=== PATIENT | female | born 1960 | race Caucasian/White ===

== ENCOUNTER → 2022-10-22 12:27 | Outpatient (BNVA) | payer OTHER, SELFPAY | PROVIDERS: Visit Provider Internal Medicine | DX: R50.9 Fever, unspecified (principal); R79.82 Elevated C-reactive protein (CRP); R21 Rash and other nonspecific skin eruption; M25.50 Pain in unspecified joint; R41.89 Other symptoms and signs involving cognitive functions and awareness; R53.83 Other fatigue; L40.9 Psoriasis, unspecified; M19.042 Primary osteoarthritis, left hand | CPT/HCPCS: 72202; 73120; 81001; 82306; 82550; 82607; 82728; 83516; 83540; 84100; 84155; 84165; 84425; 84439; 84443; 85651; 86140; 86160; 86162; 86200; 86235; 86255; 86376; 86431; 86704; 86803; 87077; 87086; 87186; 87340 ==

== ENCOUNTER → 2022-12-18 12:33 | Outpatient (BNVA) | payer OTHER, SELFPAY | PROVIDERS: PCP Family Medicine; Visit Provider Internal Medicine | DX: R50.9 Fever, unspecified (principal); R79.82 Elevated C-reactive protein (CRP); R21 Rash and other nonspecific skin eruption; M25.50 Pain in unspecified joint; R41.89 Other symptoms and signs involving cognitive functions and awareness; R53.83 Other fatigue; E83.19 Other disorders of iron metabolism; R31.9 Hematuria, unspecified | CPT/HCPCS: 36415; 80053; 81256; 82728; 83520; 83540; 85025; 85651; 86003; 86008; 86140; 86160; 86618; 86666; 86757 ==